=== PATIENT | female | born 1970 | race Caucasian/White ===

== ENCOUNTER 2021-12-15 09:17 | Emergency (ER) | payer BC ==
[2021-12-15] MEDS ORDERED: Boostrix 0.5 ML (Tdap) VIAL ONE (10:04)
== END 2021-12-15 10:28 | disposition home or self-care (01) ==
LOC: ERS 09:17
DX: T22.211A Burn of second degree of right forearm, initial encounter (principal); T22.212A Burn of second degree of left forearm, initial encounter; T22.252A Burn of second degree of left shoulder, initial encounter; S80.812A Abrasion, left lower leg, initial encounter; S80.811A Abrasion, right lower leg, initial encounter; V43.53XA Car driver injured in collision with pick-up truck in traffic accident, initial encounter
CPT/HCPCS: 90471; 90715